=== PATIENT | female | born 1980 | race Caucasian/White ===

== ENCOUNTER 2019-04-15 11:56 | Emergency (ER) | payer SELFPAY ==
--- NOTE | 2019-04-15 12:40 | RAD ---
EXAM: Chest Two Views 04/15/2019 12:37 PM HISTORY: Cough and fever COMPARISON: None. FINDINGS: Heart: Normal in size and contour. Pulmonary vessels: Normal. Costophrenic angles: Clear. Lungs: No acute airspace consolidation. Pneumothorax: None. Osseous structures:Intact. Additional findings: None. IMPRESSION: No significant acute intrathoracic disease.
== END 2019-04-15 12:45 | disposition home or self-care (01) ==
LOC: MADERS 11:56
DX: J20.8 Acute bronchitis due to other specified organisms (principal); F17.210 Nicotine dependence, cigarettes, uncomplicated
CPT/HCPCS: 71046